=== PATIENT | male | born 1985 | race Caucasian/White ===

== ENCOUNTER 2021-02-27 10:03 | Emergency (ER) | payer OTHER, SELFPAY ==
[2021-02-27 10:14] VITALS: BP 131/79; PULSE 85; RESP 16; TEMP 37.2; O2SAT 100
--- NOTE | 2021-02-27 10:28 | ED.GENADULT ---
HPI - General Adult General Chief complaint: Ear Stated complaint: sore throat Time Seen by Provider: 02/27/21 10:28 Source: patient and RN notes reviewed Mode of arrival: ambulatory Limitations: no limitations History of Present Illness HPI narrative: 36-year-old male presents with complaints of sore throat for the past 6 years. Primitivo reports increasing symptoms over the past 3 weeks. No treatment. History of smoker. No high fevers, drooling, neck or throat swelling. Pain is bilateral. Hurts to swallow. Exacerbation factors consist of eating and drinking. No rhinorrhea. Nasal congestion. No voice change. No cough or chest congestion. No nausea, vomiting, or abdominal pain. Tolerating liquids well. Denies dyspnea, difficulty swallowing, facial pain, foreign body sensation, and rash. Remains active. The patient reports he have not been diagnosed with COVID-19. The patient reports he received 2 [employer] COVID-19 vaccines. The patient reports he is not waiting for the results of a COVID-19 lab test. The patient reports he do not have chills, weakness, or fatigue. The patient reports he do not have a new or worsening cough or shortness of breath. Denies chest pain. The patient reports he do not have any loss of taste or smell, sore throat, and diarrhea. Denies recent traveling. Denies concerns for COVID-19 or exposures been home with limited outdoor exposure except for essential household needs, work, and return home. At this time, patient is not suspected of having COVID-19. Some parts of this dictation were generated by voice recognition software and may contain typographical and/or grammatical inaccuracies. Related Data Allergies Allergy/AdvReac Type Severity Reaction Status Date / Time No Known Allergies Allergy Verified 02/27/21 10:34 Review of Systems Review of Systems: Narrative: CONSTITUTIONAL: Denies fever, chills, sweats. EYES: Denies visual changes, redness, discharge. ENT: Denies rhinorrhea, otalgia. Complains of sore throat, congestion. CARDIOVASCULAR: Denies chest pain, palpitations, edema. RESPIRATORY: Denies dyspnea, wheezing, cough. GASTROINTESTINAL: Denies abdominal pain, nausea, vomiting, diarrhea. SKIN: Denies rash or itching. MUSCULOSKELETAL: Denies acute back pain, joint pain, or myalgia. NEUROLOGIC: Denies numbness or focal weakness. PSYCHIATRIC: Denies anxiety or depression. All systems reviewed & are unremarkable except as noted in HPI and below. [facility] Past Medical History Medical History Bunion of great toe of left foot Smoker Surgical History Surgical History (Updated 02/27/21 @ 11:36 by JOSE Anthony) History of foot surgery right foot surgery for bunion Family History Family History (Updated 02/27/21 @ 11:36 by JOSE Anthony) Father Diabetes mellitus Mother Alive and well Social History Social History (Updated 02/27/21 @ 11:37 by JOSE Anthony) Smoking packs per day: 1 Smoking cigarettes per day: 20.0 Years smoked: 24 Smoking pack-years: 24.00 Smoking status: Current every day smoker Tobacco type: cigarettes Second hand tobacco smoke exposure: Yes Alcohol intake: current Substance use: current Substance use type: marijuana Living arrangements: with family Occupation/Education: occupation Gender identity (if verbalized by the patient): Male Comments At time of signature, agree with nurse past medical, surgical, social, and family history. There is no relevant family history pertinent to the presenting complaint. Exam Narrative: Exam Narrative: GENERAL: This is a well-nourished, well-developed patient, in no apparent distress. Speaks in full sentences without deficits and ambulates with steady gait without dyspnea. HEAD: Normocephalic, atraumatic. EYES: PERRL. Sclera clear/white. Vision is grossly intact. NOSE: External nose normal with no obvious nasal discharge, nares with moderate redne
== END 2021-02-27 10:47 | disposition home or self-care (01) ==
PROVIDERS: Emergency Provider Nurse Practitioner Family; PCP Family Medicine
DX: J02.0 Streptococcal pharyngitis (principal); F17.210 Nicotine dependence, cigarettes, uncomplicated
CPT/HCPCS: 87880; 99213; G0463

== ENCOUNTER 2023-04-07 16:10 | Observation (INO) | payer OTHER, SELFPAY ==
[2023-04-07] VITALS (17 sets, daily range): BP systolic 110–142; BP diastolic 63–83; PULSE 63–104; RESP 12–26; TEMP 36.2–36.7; O2SAT 96–100; BMI 27.3
--- NOTE | ~2023-04-07 | CT_ITS ---
EXAMINATION: CT abdomen pelvis wo con DATE: 04/07/2023 18:03 INDICATION: Nausea and vomiting TECHNIQUE: Computed tomography (CT) of the abdomen and pelvis was performed without intravenous contr ast. The dose-length product (DLP) was 598.87 mGy-cm. Automated exposure control and iterative recons truction technique were employed. COMPARISON: None FINDINGS: Minimal dependent atelectasis is present in the lung bases. The heart size is normal. The l iver, spleen, pancreas, gallbladder, and adrenal glands are normal. The kidneys are unremarkable. No pathologically enlarged abdominal or pelvic lymph nodes are identified. There is no free intraperiton eal gas or evidence of bowel obstruction. The appendix is normal. There is mild lumbar spondylosis at L5-S1. A small fat-containing umbilical hernia is noted. IMPRESSION: 1. No CT correlate for the patient's symptoms. Reviewed, dictated and finalized at location F.
[2023-04-07 16:34] LABS: Basophils Absolute Auto 0.1 K/mm3 (0.0-0.1); Basophils Percent Auto 0.5 % (0.2-1.2); Eosinophils Percent Auto 0.1 % (0-4.4); Hematocrit 48.6 % (42.0-52.0); Hemoglobin 17.4 g/dL (14.0-18.0); Immature Granulocyte Absolute 0.09 K/mm3 (0.00-0.031); Immature Granulocyte Percent A 0.5 % (0-0.5); Lymphocytes Absolute Auto 2.59 K/mm3 (0.9-3.2); Lymphocytes Percent Auto 14.6 % (18.3-44.2); Mean Corpuscular HGB Conc 35.8 g/dl (32-36); Mean Corpuscular Hemoglobin 30.9 pg (26-34); Mean Corpuscular Volume 86.3 fl (80-100); Mean Platelet Volume 9.4 fl (7.4-10.4); Monocytes Absolute Auto 1.3 K/mm3 (0.1-0.6); Monocytes Percent Auto 7.3 % (2.6-8.5); Neutrophils Absolute Auto 13.7 K/mm3 (1.3-6.7); Platelet Count Result 354 k/mm3 (150-375); Red Blood Count 5.63 M/mm3 (4.6-6.20); White Blood Count 17.8 K/mm3 (4.5-10.0)
[2023-04-07] MEDS: ONDANSETRON INJ 4 MG/2 ML VIAL IV PUSH (16:39)
[2023-04-07] MEDS: SODIUM CHLORIDE 0.9% IV 1,000 ML 999 ML IV CONT (16:39)
[2023-04-07 16:55] LABS: Alanine Aminotransferase 44 U/L (6-50); Albumin Level 5.6 g/dL (3.5-5.1); Alkaline Phosphatase 74 U/L (38-126); Anion Gap 16 mmol/L (8-16); Aspartate Amino Transferase 55 U/L (17-59); Bilirubin,Total 0.9 mg/dL (0.2-1.3); Blood Urea Nitrogen 27 mg/dL (9-20); Calcium 10.1 mg/dL (8.4-10.2); Carbon Dioxide 23 mmol/L (22-30); Chloride 94 mmol/L (98-107); Estimated CRCL calculation 47 ml/min; Estimated Glomerular Filt Rate 34; Glucose 113 mg/dL (65-110); Lipase 63 U/L (23-300); Potassium 6.2 mmol/L (3.4-5.0); Sodium 133 mmol/L (137-145)
--- NOTE | 2023-04-07 16:57 | ECG_ITS ---
Measurements Intervals [place] Rate: 80 P: 104 WI: 216 QRS: 102 QRSD: 94 T: 121 QT: 357 QTc: 414 Interpretive Statements SINUS RHYTHM WITH FIRST DEGREE AV BLOCK ARM LEADS REVERSED [INVERTED P AND QRS IN I] NO PREVIOUS ECG AVAILABLE FOR COMPARISON Electronically Signed On 04-08-2023 10:44:13 CDT by Amrit Abreu M.D.
[2023-04-07] MEDS: CALCIUM GLUCONATE 1,000 MG/10 ML VIAL 1000 MG IV PUSH (17:02)
[2023-04-07] MEDS: SODIUM CHLORIDE 0.9% IV 1,000 ML 999 ML ×2 (17:03→17:31)
[2023-04-07 17:14] LABS: Appearance Urine Cloudy (Clear); Bacteria Urine None Seen /hpf; Bilirubin Urine 1+ (Negative); Blood Urine Negative (Negative); Color Urine Dark Yellow (Yellow); Glucose Urine UA Negative (Negative); Ketones Urine Trace mg/dL (Negative); Leukocyte Esterase Ur Trace LEU/UL (Negative); Nitrate Urine Negative (Negative); Non Pathogenic Casts >20; Protein Urine 2+ mg/dL (Negative); Specific Grav Ur 1.021 (1.001-1.035); Squamous Epithelial Cell Urine Occasional /hpf (Few); WBC Urine 0-5 /hpf
[2023-04-07 17:15] LABS: Add Urine Microscopic? YES
--- NOTE | 2023-04-07 18:03 | ED.GENADULT ---
HPI - General Adult General Chief complaint: Nausea/Vomiting/Diarrhea Stated complaint: dehydrated-N/V, cramps Time Seen by Provider: 04/07/23 16:33 Source: patient Mode of arrival: ambulatory Limitations: no limitations History of Present Illness HPI narrative: 38-year-old otherwise healthy here with complaints of nausea, vomiting, abdominal pain and diarrhea since this afternoon. Patient states he has been working out all morning from about 1130 onwards he started feeling this way. No previous history of hypertension or diabetes Onset (ago): day(s) (1) Pain Consistency: constant Relieving factors: none Exacerbating factors: none Associated symptoms: denies other symptoms Related Data Allergies Allergy/AdvReac Type Severity Reaction Status Date / Time No Known Allergies Allergy Verified 02/27/21 10:34 Review of Systems Review of Systems: All systems reviewed & are unremarkable except as noted in HPI and below Constitutional: Constitutional: Reports no additional constitutional complaints Eyes: Eyes: Reports no additional eye complaints ENT: Reports system reviewed and no additional complaints, except as documented Cardiovascular: Cardiovascular: Reports no additional cardiovascular complaints Gastrointestinal: Gastrointestinal: Reports as per HPI Musculoskeletal: Musculoskeletal: Reports no additional musculoskeletal complaints Neurologic: Reports system reviewed and no additional complaints, except as documented PMFSH Past Medical History Medical History Bunion of great toe of left foot Smoker Surgical History Surgical History History of foot surgery right foot surgery for bunion Family History Family History Father Diabetes mellitus Mother Alive and well Social History Social History (Updated 02/27/21 @ 11:37 by JOSE Anthony) Smoking packs per day: 1 Smoking cigarettes per day: 20.0 Years smoked: 24 Smoking pack-years: 24.00 Smoking status: Current every day smoker Tobacco type: cigarettes Second hand tobacco smoke exposure: Yes Alcohol intake: current Substance use: current Substance use type: marijuana Living arrangements: with family Occupation/Education: occupation Gender identity (if verbalized by the patient): Male Exam Narrative: GENERAL: Well-appearing, well-nourished, diaphoretic HEAD: Normocephalic, atraumatic. EYES: PERRLA and EOMI. NECK: Supple. CHEST: Clear to auscultation. No respiratory distress. HEART: Regular rate and rhythm. No murmur heard. Normal peripheral pulses. ABDOMEN: Soft, nontender, nondistended, normal active bowel sounds. EXTREMITIES: Normal range of motion. No edema. SKIN: Warm, dry, no rash. NEURO: No focal deficits. Alert and oriented x3. PSYCH: Normal mood and affect. Course Course Emergency Course: Patient is a appears to be quite anxious and diaphoretic. We will start IV fluids give Zofran for nausea. His lab work shows he has a elevated potassium of 6.2 and creatinine of 2.20 give gram of calcium gluconate obtain EKG Will consult nephrology. Discussed with Dr. Dora Nicole . Vital Signs Vital signs: Vital Signs Temperature 36.2 C L 04/07/23 16:11 Pulse Rate 104 H 04/07/23 16:11 Respiratory Rate 26 H 04/07/23 16:11 Blood Pressure 142/78 H 04/07/23 16:11 Pulse Oximetry 97 04/07/23 16:11 Oxygen Delivery Room Air 04/07/23 16:11 Temperature 36.2 C L 04/07/23 16:11 Pulse Rate 87 04/07/23 16:45 Respiratory Rate 18 04/07/23 16:45 Blood Pressure 130/83 04/07/23 16:28 Pulse Oximetry 98 04/07/23 16:45 Oxygen Delivery Room Air 04/07/23 16:11 Medical Decision Making [facility] Narrative Medical decision making narrative: 38-year-old otherwise healthy here with complaints nausea, vomiting, muscle cramps and abdominal cramps been working
[2023-04-07 18:22] LABS: Need Manual Microscopic Reviewed
[2023-04-07 18:25] LABS: Hyaline Casts Urine Present /lpf
[2023-04-07] MEDS: SODIUM ZIRCONIUM CYCLOSILICATE 10 GM POWD.PACK PO (18:46)
--- NOTE | 2023-04-07 18:57 | ADMGEN ---
This patient, Primitivo Wetzel, was admitted to IMU Room 211-01 @ 1850. monitor on SR 80's. Patient oriented to hospital policies and general routines including ID bracelet, bed and alarms, visiting hours, pain management, procedures, bathroom and other care routines, personal items, smoking policy, room service/diet, and visiting hours. Information on how to activate the Rapid Response Team has been discussed. Patien are encouraged to report perceived risks to care and to ask questions if they do not understand what they are told or what they should do.
--- NOTE | 2023-04-07 19:18 | PM.IMHP ---
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 The patient was out in the heat today. He started having some cramping in his legs he had nausea vomiting and abdominal pain this afternoon. This started around 11 30 this morning. His white count was noted to be 17.8. Neutrophils 77.0. His potassium was 6.2. Sodium 133 and then 134. Chloride was 94 and then 103. BUN was 27 now 20 creatinine was 2.2 now 1.1. His GFR was 34 and now is greater than 60. Glucose was 113 and now it is normal. The patient was given IV fluids, Zofran, calcium gluconate, and lokelma. The patient was admitted to IMU as the inpatient on the date of service of 04/07/2023. Review of Systems Review of Systems: All systems reviewed & are unremarkable except as noted in HPI and below Constitutional: Constitutional: Reports as per HPI and Reports no additional constitutional complaints Eyes: Eyes: Reports as per HPI and Reports no additional eye complaints ENT: Reports system reviewed and no additional complaints, except as documented and Reports Normal hearing present Cardiovascular: Cardiovascular: Reports no additional cardiovascular complaints Respiratory: Respiratory: Reports no additional respiratory complaints and Reports no additional respiratory complaints Gastrointestinal: Gastrointestinal: Reports as per HPI and Reports no additional gastrointestinal complaints Musculoskeletal: Musculoskeletal: Reports no additional musculoskeletal complaints Integumentary/Breasts: Skin/Breast: Reports system reviewed and no additional complaints, except as docu and Reports as per HPI Neurologic: Reports system reviewed and no additional complaints, except as documented, Reports as per HPI and Reports Normal hearing present Psychiatric: Psychiatric: Reports no additional psychiatric complaints and Reports as per HPI Endocrine: Endocrine: Reports no additional endocrine complaints Hematologic/Lymphatic: Hematologic/Lymphatic: Reports no additional hematologic/lymphatic complaints Allergic/Immunologic: Allergic/Immunologic: Reports no additional allergic/immunologic complaints [facility] Past Medical History Medical History Bipolar disease, chronic Bunion of great toe of left foot Depression Smoker Surgical History Surgical History History of foot surgery right foot surgery for bunion Family History Family History Father Diabetes mellitus Mother Alive and well Social History Social History (Updated 04/08/23 @ 00:41 by Tiana Camilo NP) Social History: the patient is single and has 1 child. The patient for continues to use marijuana. The patient smokes a pack a cigarettes a day. Code status full code Smoking packs per day: 0.75 Smoking cigarettes per day: 15.0 Years smoked: 22 Smoking pack-years: 16.50 Smoking status: Current every day smoker Tobacco type: cigarettes Second hand tobacco smoke exposure: Yes Alcohol intake: never Substance use: current Substance use type: marijuana Other substance usage details: Every other day Last use: 04/06/2023 Lack of Transportation: No Lack of Food: Never True Current Housing: I Have Housing Concerned About Future Housing: No Difficulty Paying Gas/Electric Bills: No Difficulty Paying for Meds: No Currently Unemployed: No Education: Associate Degree Difficulty w/ Childcare or Family Care: No Living arrangements: with family Occupation/Education: occupation Gender identity (if verbalized by the patient): Male Spiritual care concerns: No Meds Home Medications and Allergies Home Medications Medication Instructions Recorded Confirmed Type eszopiclone 3 mg tablet (
[2023-04-07] MEDS: SODIUM CHLORIDE 0.9% IV 1,000 ML 125 ML IV CONT (19:28)
[2023-04-07] MEDS: NICOTINE (*PBKC) 21 MG PATCH 1 PATCH TRANSDERM (21:54)
[2023-04-07 22:19] LABS: Anion Gap 6 mmol/L (8-16); Blood Urea Nitrogen 20 mg/dL (9-20); Calcium 8.3 mg/dL (8.4-10.2); Carbon Dioxide 25 mmol/L (22-30); Chloride 103 mmol/L (98-107); Estimated CRCL calculation 92 ml/min; Estimated Glomerular Filt Rate > 60; Glucose 93 mg/dL (65-110); Potassium 4.6 mmol/L (3.4-5.0); Sodium 134 mmol/L (137-145)
[2023-04-08] VITALS (8 sets, daily range): BP systolic 111–114; BP diastolic 59–65; PULSE 56–67; RESP 16–18; TEMP 36–36.4; O2SAT 97–98
[2023-04-08] MEDS: SODIUM CHLORIDE 0.9% IV 1,000 ML 125 ML IV CONT (03:06)
[2023-04-08 04:33] LABS: Basophils Absolute Auto 0.1 K/mm3 (0.0-0.1); Basophils Percent Auto 0.5 % (0.2-1.2); Eosinophils Absolute Auto 0.1 K/mm3 (0-0.3); Eosinophils Percent Auto 0.9 % (0-4.4); Hematocrit 40.3 % (42.0-52.0); Hemoglobin 13.7 g/dL (14.0-18.0); Immature Granulocyte Absolute 0.03 K/mm3 (0.00-0.031); Immature Granulocyte Percent A 0.3 % (0-0.5); Lymphocytes Absolute Auto 3.42 K/mm3 (0.9-3.2); Lymphocytes Percent Auto 32.4 % (18.3-44.2); Mean Corpuscular Hemoglobin 30.7 pg (26-34); Mean Corpuscular Volume 90.4 fl (80-100); Mean Platelet Volume 9.2 fl (7.4-10.4); Monocytes Absolute Auto 1.3 K/mm3 (0.1-0.6); Monocytes Percent Auto 11.8 % (2.6-8.5); Neutrophils Absolute Auto 5.7 K/mm3 (1.3-6.7); Neutrophils Percent Auto 54.1 % (45.5-73.1); Platelet Count Result 220 k/mm3 (150-375); Red Blood Count 4.46 M/mm3 (4.6-6.20); Red Cell Distribution Width 12.5 % (11.5-14.5); White Blood Count 10.6 K/mm3 (4.5-10.0)
[2023-04-08 04:56] LABS: Anion Gap 2 mmol/L (8-16); Blood Urea Nitrogen 17 mg/dL (9-20); Carbon Dioxide 27 mmol/L (22-30); Chloride 107 mmol/L (98-107); Estimated CRCL calculation 111 ml/min; Estimated Glomerular Filt Rate > 60; Glucose 85 mg/dL (65-110); Magnesium 2.5 mg/dL (1.6-2.3); Potassium 4.2 mmol/L (3.4-5.0); Sodium 136 mmol/L (137-145)
--- NOTE | 2023-04-08 09:55 | PM.DS ---
DS: Admitting Diagnosis Discharge Date 04/08/23 Admitting Diagnosis Nausea, vomiting DS: Discharge Diagnosis Discharge Diagnosis (1) STEFFANIE (acute kidney injury): Code(s): N17.9 - Acute kidney failure, unspecified Status: Acute (2) Acute hyperkalemia: Code(s): E87.5 - Hyperkalemia Status: Acute (3) Bipolar disease, chronic: Code(s): F31.9 - Bipolar disorder, unspecified Status: Acute (4) Depression: Code(s): F32.A - Depression, unspecified Status: Acute DS: Summary Hospital Course Reason for hospitalization: 38yo male with bipolar disorder here for nausea and vomiting. Please see H&P for details. 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 He was having cramping in his legs with nausea, vomiting and abdominal pain. WBC was 17.8.?Potassium was 6.2.? Sodium 133.?BUN was 27 and creatinine was 2.2.? The patient was given IV fluids, Zofran, calcium gluconate, and lokelma.? The patient was admitted to IMU. He was continued on IV fluids. His nausea resolved and was able to eat. He had clinical improvement. No CP or SOB. No myalgias. Voiding well. Sodium 136, potassium 4.2, BUN 17 and CR 0.9. He was advised to drink plenty of free fluids and avoid alcohol and caffeine. He overall did well and was able to be discharged home on 04/08/23. Status at Discharge Cognitive/behavioral status at discharge: Stable Time Spent with Patient Time attestation: Total time spent providing and/or coordinating discharge services: 32 minutes Time spent: Greater than 30 minutes Exam Narrative: AF 96.8 111/65 62 16 97% Gen - NARD Chest - CTA bilaterally, nml RR CV - RRR S1/S2. Telemetry showing no significant dysrhythmias. Abd - Soft, NT/ND, Positive BS Ext - No pedal edema Neuro - Alert and oriented. Nonfocal exam. Psych - Nml mood and affect Skin - Warm and dry DS: Data Data Completed and Pending Labs on day of discharge: Labs from last 24 hours 04/08/23 04/07/23 04/07/23 04:25 21:54 16:42 WBC 10.6 H RBC 4.46 L Hgb 13.7 L D Hct 40.3 L MCV 90.4 MCH 30.7 MCHC 34.0 RDW 12.5 Plt Count 220 MPV 9.2 Immature Gran % (Auto) 0.3 Neut % (Auto) 54.1 Lymph % (Auto) 32.4 [place] % (Auto) 11.8 H Eos % (Auto) 0.9 Baso % (Auto) 0.5 Lymph # (Auto) 3.42 H [place] # (Auto) 1.3 H Eos # (Auto) 0.1 Baso # (Auto) 0.1 Abs Immat Gran (auto) 0.03 Absolute Neuts (auto) 5.7 Absolute Nucleated RBC 0.0 Nucleated RBC % 0.0 Sodium 136 L 134 L Potassium 4.2 4.6 Chloride 107 103 Carbon Dioxide 27 25 Anion Gap 2 L 6 L BUN 17 20 Creatinine 0.90 1.10 Estim Creat Clear Calc 111 92 Estimated GFR > 60 > 60 Glucose 85 93 Calcium 8.0 L 8.3 L Magnesium 2.5 H Total Bilirubin AST ALT Alkaline Phosphatase Total Protein Albumin Lipase Urine Color Dark yellow Urine Appearance Cloudy H Urine pH 5.0 Ur Specific [place] 1.021 Urine Protein 2+ H Urine Glucose (UA) Negative Urine Ketones Trace H Ur Blood (Man) Negative Urine Nitrate Negative Urine Bilirubin 1+ H Urine Urobilinogen 1.0 Add Ur Microanalysis Reviewed Leukocyte Esterase Rfl Trace H Urine RBC 3-5 H Urine WBC 0-5 Ur Squamous Epith Cells Occasional Urine Bacteria None seen Urine Casts >20 Hyaline Casts Present 04/07/23 16:28 WBC 17.8 H RBC 5.63 Hgb 17.4 Hct 48.6 MCV 86.3 MCH 30.9 MCHC 35.8 RDW 12.0 Plt Count 354 MPV 9.4 Immature Gran % (Auto) 0.5 Neut % (Auto) 77.0 H Lymph % (Auto) 14.6 L [place] % (Auto) 7.3 Eos % (Auto) 0.1 Baso % (Auto) 0.5 Lymph # (Auto) 2.59 [place] # (Auto) 1.3 H Eos # (Auto) 0.0 Baso # (Auto) 0.1 Abs Immat Gran (auto) 0.09 H Absolute Neuts (auto) 13.7 H Absolute Nucleated RBC 0.0 Nucleated RBC % 0.0 Sodium 133 L Potassium 6.2 H* Chloride
[2023-04-08] MEDS: PROPRANOLOL HCL 10 MG TABLET PO (10:44)
[2023-04-08] MEDS: FLUoxetine HCL 20 MG CAPSULE PO (10:44)
== END 2023-04-08 10:55 | disposition home or self-care (01) ==
LOC: ANHED 16:46 → ANHIMU 22:39
PROVIDERS: Emergency Medicine; Nurse Practitioner; Admitting Provider Hospitalist; Emergency Provider Family Medicine; PCP Family Medicine; Visit Provider Internal Medicine
DX: N17.9 Acute kidney failure, unspecified (principal); E87.5 Hyperkalemia; F31.9 Bipolar disorder, unspecified; I44.0 Atrioventricular block, first degree; D72.829 Elevated white blood cell count, unspecified; E87.1 Hypo-osmolality and hyponatremia; R79.89 Other specified abnormal findings of blood chemistry; F17.210 Nicotine dependence, cigarettes, uncomplicated; F10.90 Alcohol use, unspecified, uncomplicated; F12.90 Cannabis use, unspecified, uncomplicated
CPT/HCPCS: 36415; 74176; 80048; 80053; 81001; 83690; 83735; 85025; 93005; 96361; 96374; 99285; A9270; G0378; J0612; J2405; J7030

== ENCOUNTER 2024-02-03 04:53 | Emergency (ER) | payer OTHER, SELFPAY ==
[2024-02-03] VITALS (13 sets, daily range): BP systolic 110–131; BP diastolic 60–84; PULSE 67–79; RESP 11–16; TEMP 36.4; O2SAT 94–100
--- NOTE | ~2024-02-03 | XR_ITS ---
Portable chest x-ray Comparison: None Clinical History: Overdose Findings: Lungs are clear, without focal consolidation or pleural effusion. Cardiomediastinal silho uette is unremarkable. Bones and soft tissues are unremarkable. Impression: Clear lungs. Reviewed, dictated and finalized at location M. Impression: Clear lungs.
--- NOTE | 2024-02-03 05:00 | ECG_ITS ---
Measurements Intervals [place] Rate: 68 P: 75 MS: 226 QRS: 84 QRSD: 97 T: 74 QT: 391 QTc: 417 Interpretive Statements SINUS RHYTHM WITH FIRST DEGREE AV BLOCK COMPARED TO ECG 04/07/2023 17:05:17 NO SIGNIFICANT CHANGES Electronically Signed On 02-03-2024 11:04:21 CDT by Amrit Abreu M.D.
[2024-02-03 05:13] LABS: Basophils Absolute Auto 0.1 K/mm3 (0.0-0.1); Basophils Percent Auto 0.7 % (0.2-1.2); Eosinophils Absolute Auto 0.4 K/mm3 (0-0.3); Eosinophils Percent Auto 3.3 % (0-4.4); Hematocrit 43.8 % (42.0-52.0); Hemoglobin 14.6 g/dL (14.0-18.0); Immature Granulocyte Absolute 0.09 K/mm3 (0.00-0.031); Immature Granulocyte Percent A 0.8 % (0-0.5); Mean Corpuscular HGB Conc 33.3 g/dl (32-36); Mean Corpuscular Hemoglobin 31.2 pg (26-34); Mean Corpuscular Volume 93.6 fl (80-100); Mean Platelet Volume 9.2 fl (7.4-10.4); Monocytes Absolute Auto 0.9 K/mm3 (0.1-0.6); Monocytes Percent Auto 7.4 % (2.6-8.5); Neutrophils Absolute Auto 4.8 K/mm3 (1.3-6.7); Neutrophils Percent Auto 40.8 % (45.5-73.1); Platelet Count Result 314 k/mm3 (150-375); Red Blood Count 4.68 M/mm3 (4.6-6.20); Red Cell Distribution Width 12.9 % (11.5-14.5); White Blood Count 11.7 K/mm3 (4.5-10.0)
--- NOTE | 2024-02-03 05:21 | PC.NURSE ---
Patient admits to using marijuana and cocaine. Patient unaware if cocaine had other drugs in it.
[2024-02-03 05:27] LABS: Acetaminophen < 10 ug/mL (10-30); Ethanol < 10 mg/dL (<10); Salicylate < 1.0 mg/dL (2-20)
[2024-02-03 05:32] LABS: Alanine Aminotransferase 114 U/L (6-50); Albumin Level 4.3 g/dL (3.5-5.1); Alkaline Phosphatase 58 U/L (38-126); Anion Gap 6 mmol/L (4-12); Aspartate Amino Transferase 136 U/L (17-59); Bilirubin,Total 0.4 mg/dL (0.2-1.3); Blood Urea Nitrogen 23 mg/dL (9-20); Calcium 8.9 mg/dL (8.4-10.2); Carbon Dioxide 30 mmol/L (22-30); Chloride 105 mmol/L (98-107); Estimated CRCL calculation 97 ml/min; Estimated Glomerular Filt Rate > 60; Glucose 148 mg/dL (65-110); Potassium 4.3 mmol/L (3.4-5.0); Sodium 141 mmol/L (137-145)
[2024-02-03 05:52] LABS: SARS-CoV-2 RNA PCR Negative (Negative)
--- NOTE | 2024-02-03 05:53 | PC.NURSE ---
Patient refuses straight urinary catheter for urine specimen.
--- NOTE | 2024-02-03 05:54 | PC.NURSE ---
Patient's SPO2% dropped down to 91% on 3L/min O2 via nasal cannula. Per mother at bedside patient does have sleep apnea. Patient's O2 increased to 4L/min via nasal cannula and SPO2% increased to 96.
--- NOTE | 2024-02-03 05:57 | PC.NURSE ---
Patient states it's December. Per mother at bedside ever since patient has been experiencing a manic episode he will state it is December. Patient was corrected that it is December and replies yeah it just started . Patient also answers Biden when asked who the president is.
[2024-02-03] MEDS: ONDANSETRON INJ 4 MG/2 ML VIAL IV PUSH (06:50)
--- NOTE | 2024-02-03 06:57 | PC.NURSE ---
Patient began vomiting. Notified EDP Dr. Rucker who VRBO 4mg Zofran IVP. Zofran given at 0650.
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
== END 2024-02-03 07:52 | disposition home or self-care (01) ==
PROVIDERS: Emergency Provider Emergency Medicine; PCP Family Medicine
DX: T40.5X1A Poisoning by cocaine, accidental (unintentional), initial encounter (principal); R11.2 Nausea with vomiting, unspecified; Z20.822 Contact with and (suspected) exposure to COVID-19; F31.9 Bipolar disorder, unspecified; F17.210 Nicotine dependence, cigarettes, uncomplicated
CPT/HCPCS: 36415; 71045; 80053; 80307; 84443; 85025; 87635; 93005; 96374; 99284; J2405

== ENCOUNTER 2024-09-16 12:38 | Outpatient (CLI) | payer OTHER, SELFPAY ==
[2024-09-16 13:07] LABS: Hematocrit 42.8 % (42.0-52.0); Hemoglobin 14.4 g/dL (14.0-18.0); Mean Corpuscular HGB Conc 33.6 g/dl (32-36); Mean Corpuscular Hemoglobin 30.9 pg (26-34); Mean Corpuscular Volume 91.8 fl (80-100); Mean Platelet Volume 9.8 fl (7.4-10.4); Platelet Count Result 230 k/mm3 (150-375); Red Blood Count 4.66 M/mm3 (4.6-6.20); Red Cell Distribution Width 12.9 % (11.5-14.5); White Blood Count 6.5 K/mm3 (4.5-10.0)
[2024-09-16 13:15] LABS: Alanine Aminotransferase 22 U/L (6-50); Albumin Level 4.2 g/dL (3.5-5.1); Alkaline Phosphatase 45 U/L (38-126); Aspartate Amino Transferase 24 U/L (17-59); Bilirubin,Total 0.2 mg/dL (0.2-1.3)
[2024-09-16 13:37] LABS: Valproic Acid 85.4 ug/mL (50-120)
== END 2024-09-16 12:39 | disposition home or self-care (01) ==
PROVIDERS: PCP Family Medicine
DX: Z79.899 Other long term (current) drug therapy (principal)
CPT/HCPCS: 36415; 80076; 80164; 85027